=== PATIENT | male | born 1960 | race Hispanic/Latino ===

== ENCOUNTER 2017-04-03 11:35 | Day surgery (SDC) | payer OTHER ==
[~2017-04-03] VITALS: Ht 185.4 cm; Wt 88.0 kg
[~2017-04-03 11:35] MED LIST: SILD20TA PO; Sodium Chloride LOK Flush 10 mL Syringe IV PRN; fentaNYL-PF 50 mCg/mL 2 mL Inj IVPUSH PRN
[2017-04-03 11:49] VITALS: BP 141/86; PULSE 59; RESP 16; O2SAT 96
[2017-04-03 12:51] VITALS: BP 109/68; PULSE 59; RESP 16; O2SAT 98
--- NOTE | 2017-04-03 12:52 | PCM.ENDCOL ---
Colonoscopy Date of Service: Apr 03, 2017 Physician Rios Eason MD Pre Procedure Diagnosis: Screening Post Procedure Dx & Findings: Polyp hemorrhoids diverticula Procedure Colonoscopy PROCEDURE IN DETAIL: Prep adequate Withdrawal time 12 minutes After unremarkable rectal examination the Olympus video colonoscope was inserted patient's anal canal and was advanced to cecum. Landmarks were identified including the ileocecal valve and appendiceal orifice. Scope was withdrawn systematically. Visualized colonic mucosa showed healthy shiny mucosa with normal healthy-appearing vasculature. In the cecum, there were 3 polyps. One of them was 2 mm in size which was removed completely using cold snare. The other 2 were 1 mm or less. These were both removed completely using cold forceps. In the sigmoid colon there were small to medium sized diverticula few in number. In the rectum retroflexion was done which showed hemorrhoids. Anal canal was inspected carefully on the way out and hemorrhoids noted. Impression Polyps 3 status post complete removal Diverticuli Hemorrhoids Recommendation Repeat colonoscopy 3 years Diverticular diet Presedation Assessment Risks and Benefits Informed consent was obtained from the patient after all risks and benefits including but not limited to drug reaction, infection, pain, bleeding, perforation, as well as alternatives were discussed. Patient monitoring Continuous pulse oximetry, cardiac monitoring, blood pressure monitoring, IV access, and oxygen at 2L per nasal cannula. Periprocedural Fentanyl: Fentanyl 150mcg Incrementally Midazolam: Midazolam 8mg Incrementally Complications There were no periprocedural complications identified. Post Procedure Plan Post Procedure Recommendations 1. Restrict activities today. 2. Resume normal activities in the morning. 3. Resume medications. 4. Patient informed of normal post procedure side effects as bloating, drowsiness, blood streaking in the stool. 5. average risk CRCS. If colon polyps come back as: -Hyperplastic- can repeat colonoscopy in 10 years -Tubular adenoma- repeat colonoscopy in 5 years -Tubulovillous/villous adenoma- repeat colonoscopy in 3 years -If any dysplasia- return to clinic as soon as possible 6. Please don't hesitate to call me with any questions. Rios Eason MD Apr 03, 2017 12:51
[2017-04-03] MEDS ORDERED: 0.9% Sodium Chloride 1,000 ML IV ONE (12:57)
[2017-04-03 13:00] VITALS: BP 127/85; PULSE 56; RESP 16; O2SAT 97
--- NOTE | 2017-04-04 15:22 | PATH ---
SURGICAL PATHOLOGY Attending Physician:Rios Eason M.D. CASE STATUS: Signed Out PATIENT NAME: AARTI OLSON PID: [id number] : 1960 DATE COLLECTED:04/03/2017 22:09 SPECIMEN: Colon, Polyp CLINICAL HISTORY: 1). 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 ICD10 D12.0 GROSS DESCRIPTION: Received in formalin, labeled with the patient' s name and "cecum polyps", are two fragments of grier, soft tissue ranging in size from 0.1 x 0.1 x 0.1 cm to 0.2 x 0.1 x 0.1 cm. All fragments are totally submitted in cassette 1A. ([id number]) MICRO DESCRIPTION: See diagnosis. ICD-9 CODES: CPT CODES: 1: 78939 Electronically Signed Out Kashmir Hopkins MD [facility] [address], [place] [address] Technical component performed at [facility], [facility] [address], [place], [address]
== END 2017-04-03 23:59 | disposition home or self-care (01) ==
LOC: END 11:35
PROVIDERS: ATTEND Internal Medicine
DX: Z12.11 Encounter for screening for malignant neoplasm of colon (principal); D12.0 Benign neoplasm of cecum; K57.30 Diverticulosis of large intestine without perforation or abscess without bleeding; K64.8 Other hemorrhoids
CPT/HCPCS: 45380; 45385; 99153; G0500; J7030